=== PATIENT | male | born 1960 | race African-American/Black ===

== ENCOUNTER 2024-06-13 11:02 | Emergency (ER) | payer MEDICARE ==
[~2024-06-13] VITALS: Ht 185.4 cm; Wt 118.2 kg
[2024-06-13 11:08] VITALS: TEMP 98
[2024-06-13] MEDS ORDERED: HAWT500C PO (11:12)
[2024-06-13] MEDS ORDERED: ASPI-1444 PO (11:12)
[2024-06-13] MEDS ORDERED: GABA-1216 PO (11:12)
[2024-06-13] MEDS: LIDOCAINE 5% TRANSDERMAL PATCH TD ONE (12:57)
[2024-06-13] MEDS: IBUPROFEN 600 MG TABLET PO ONE (12:57)
[2024-06-13] MEDS ORDERED: LIDO700A15 TP (12:59)
[2024-06-13] MEDS ORDERED: CYCL-448 PO (12:59)
[2024-06-13 13:19] VITALS: BP 149/74; PULSE 71; RESP 18
== END 2024-06-13 13:27 | disposition home or self-care (01) ==
LOC: EMS 11:13
DX: S29.012A Strain of muscle and tendon of back wall of thorax, initial encounter (principal); J45.909 Unspecified asthma, uncomplicated; X50.9XXA Other and unspecified overexertion or strenuous movements or postures, initial encounter; Y93.89 Activity, other specified; Y92.89 Other specified places as the place of occurrence of the external cause; Y99.8 Other external cause status
CPT/HCPCS: 93005; 99283

== ENCOUNTER → 2024-08-15 | Emergency (ER) | payer MEDICARE ==
[~2024-08-15] VITALS: Ht 182.9 cm; Wt 106.8 kg
[~2024-08-15] MED LIST: ASPI-1444 PO; CYCL-448 PO; GABA-1216 PO; HAWT500C PO; LIDO700A15 TP
[2024-08-15 08:33] VITALS: BP 128/61; PULSE 68; RESP 18; TEMP 97.3; O2SAT 98
[2024-08-15] MEDS: SODIUM CHLORIDE 0.9% 1,000 ML IV ONE (08:52)
[2024-08-15] MEDS: MORPHINE SULFATE 2 MG/ML SYRINGE IVP ONE (08:52)
[2024-08-15 09:01] LABS: BASOPHILS % (AUTO) 0.6 % (0.0-2.0); HEMATOCRIT 44.4 % (41-53); LYMPHOCYTES % (AUTO) 10.6 % (22.0-44.0); MEAN CORPUSCULAR HEMOGLOBIN 32.5 pg (26.0-34.0); MEAN CORPUSCULAR HGB CONC 33.8 G/dL (31.0-37.0); MEAN CORPUSCULAR VOLUME 96 fL (80-100); MONOCYTES # (AUTO) 0.6 K/uL (0.1-1.0); MONOCYTES % (AUTO) 5.8 % (2.0-9.0); PLATELET COUNT (AUTO) 229 K/uL (150-450); RED BLOOD CELL COUNT(AUTO) 4.62 MIL/uL (4.50-5.90); RED CELL DISTRIBUTION WIDTH 13.4 % (11.5-14.5); WHITE BLOOD COUNT (AUTO) 9.8 K/uL (4.5-11.0)
[2024-08-15 09:15] LABS: ANION GAP 10 mmol/L (8-16); CALCIUM, TOTAL 8.9 mg/dL (8.8-10.5); CARBON DIOXIDE 28 mmol/L (22-29); CHLORIDE 104 mmol/L (98-107); CREATININE 1.09 mg/dL (0.60-1.30); GLOMERULAR FILTR. RATE CALC > 60 mL/min (>60); GLUCOSE,RANDOM 125 mg/dL (70-110); POTASSIUM 3.6 mmol/L (3.5-5.1); SODIUM SERUM 142 mmol/L (136-145); UREA NITROGEN, BLOOD 10 mg/dL (7-18)
[2024-08-15 09:22] LABS: ALANINE AMINOTRANSFERASE 60 U/L (12-78); ALBUMIN 3.6 g/dL (3.4-5.0); ALKALINE PHOSPHATASE 80 U/L (46-116); ASPARTATE AMINOTRANSFERASE 54 U/L (15-37); LIPASE 39 U/L (16-77); TOTAL PROTEIN, SERUM 7.5 g/dL (6.4-8.2); TROPONIN I-HIGH SENSITIVITY 8 ng/L (<76)
[2024-08-15 11:18] LABS: APPEARANCE,URINE CLEAR (CLEAR); BILIRUBIN,URINE NEGATIVE (NEGATIVE); COLOR,URINE YELLOW (YELLOW); GLUCOSE, URINE (UA) NEGATIVE (NEGATIVE); KETONES,URINE NEGATIVE (NEGATIVE); LEUKOCYTE ESTERASE ,URINE NEGATIVE (NEGATIVE); NITRATE,URINE NEGATIVE (NEGATIVE); OCCULT BLOOD,URINE NEGATIVE (NEGATIVE); PH,URINE 6.5 (5.0-8.0); PROTEIN,URINE TRACE mg/dL (NEGATIVE); SPECIFIC GRAVITIY, URINE 1.031 (1.003-1.030)
== END | disposition still patient (30) ==
LOC: EMS 08:29
DX: R10.84 Generalized abdominal pain (principal); J45.909 Unspecified asthma, uncomplicated; I10 Essential (primary) hypertension
CPT/HCPCS: 99285; 74176; 96374; 71045; 96361; 80053; 81003; 83690; 84484; 85025; 36415; 93005; J2270; J7030

== ENCOUNTER 2024-09-08 11:39 | Emergency (ER) | payer MEDICARE ==
[~2024-09-08] VITALS: Ht 182.9 cm; Wt 106.8 kg
[~2024-09-08 11:39] MED LIST changes: -CYCL-448 PO; -HAWT500C PO; -LIDO700A15 TP
[2024-09-08 11:53] VITALS: TEMP 98.5
[2024-09-08] MEDS ORDERED: IBUP-45 PO (11:55)
[2024-09-08] MEDS: KETOROLAC TROMETHAMINE 30 MG/ML VIAL IM ONE (15:21)
[2024-09-08] MEDS: METHOCARBAMOL 500 MG TABLET PO ONE (17:38)
[2024-09-08 18:45] VITALS: BP 137/83; PULSE 78; RESP 18; O2SAT 98
[2024-09-08] MEDS ORDERED: METH-812 PO (18:51)
[2024-09-08] MEDS ORDERED: IBUP-1492 PO (18:51)
[2024-09-08] MEDS ORDERED: HYDR-4062 PO (18:51)
== END 2024-09-08 19:55 | disposition home or self-care (01) ==
LOC: EMS 11:39
DX: F07.81 Postconcussional syndrome (principal); I10 Essential (primary) hypertension; J45.909 Unspecified asthma, uncomplicated; Z88.8 Allergy status to other drugs, medicaments and biological substances; Z91.041 Radiographic dye allergy status; V89.2XXA Person injured in unspecified motor-vehicle accident, traffic, initial encounter; Y93.89 Activity, other specified; Y92.410 Unspecified street and highway as the place of occurrence of the external cause; Y99.8 Other external cause status
CPT/HCPCS: 99285; 70450; 73503; 71250; 72125; 96372; J1885

== ENCOUNTER 2025-02-19 09:58 | Emergency (ER) | payer MEDICARE ==
[~2025-02-19] VITALS: Ht 182.9 cm; Wt 111.4 kg
[~2025-02-19 09:58] MED LIST changes: -ASPI-1444 PO; -GABA-1216 PO; +HYDR-4062 PO; +IBUP-1492 PO; +IBUP-45 PO; +METH-812 PO
[2025-02-19 10:07] VITALS: BP 167/69; PULSE 63; RESP 18; TEMP 97.9; O2SAT 97
[2025-02-19] MEDS ORDERED: TRIA15CR49 TP (11:11)
[2025-02-19] MEDS ORDERED: [UNRECOGNIZED DRUG - CODE] PO (11:11)
== END 2025-02-19 11:53 | disposition home or self-care (01) ==
LOC: EMS 10:05
DX: B36.0 Pityriasis versicolor (principal); I10 Essential (primary) hypertension; J45.909 Unspecified asthma, uncomplicated; Z88.8 Allergy status to other drugs, medicaments and biological substances; Z91.041 Radiographic dye allergy status
CPT/HCPCS: 99283; Z7502